=== PATIENT | female | born 1955 | race Caucasian/White ===

== ENCOUNTER 2022-04-08 07:38 | Observation (INO) ==
--- NOTE | 2022-03-05 12:50 | PAT Medication Instructions ---
Medication Instructions Date of Service March 05, 2022 Home Medications hydrochlorothiazide 25 mg tablet 25 mg PO QAM latanoprost 0.005 % eye drops 1 drp OPHTHALMIC (EYE) PM lisinopril 20 mg tablet 20 mg PO QAM DO NOT take the morning of surgery hydrochlorothiazide 25 mg tablet 25 mg PO QAM lisinopril 20 mg tablet 20 mg PO QAM Take evening before surgery latanoprost 0.005 % eye drops 1 drp OPHTHALMIC (EYE) PM Other Notes If you have any questions please call us at [phone] or [phone] or [phone] or [phone]
--- NOTE | 2022-03-10 09:15 | Anesthesiology Consultation ---
Date of Service March 10, 2022 Assessment & Plan (1) Encounter for pre-operative examination: COVID screening: Per assessment on 03/10: No known COVID-19 positive contacts or current COVID-19 related symptoms. Travel screen negative. Patient vaccinated. Surgeon arranging preop COVID testing. Awaiting results. Chart Review Chart Review: Acceptable Risk for Surgery and Patient seen in Pre Admission Testing Teaching & Discussion Pre-Anesthesia Teaching/Discussion Notes: Instructed NPO after midnight before surgery,except medications with 15 cc of water. Medication instructions provided according to the PAT guidelines. History Surgery Operation Date: 04/08/22 13:05 Proposed Procedures p Right Total Knee Arthroplasty - Lang Rubio DO Height/Weight Height: 5 ft 2 in Weight: 68.8 kg Allergies Allergy/AdvReac Type Severity Reaction Status Date / Time No Known Allergies Allergy Verified 03/05/22 11:41 Medications Home Medications Medication Instructions Recorded Confirmed Last Taken latanoprost 0.005 % eye drops 1 drp OPHTHALMIC (EYE) PM 03/05/22 03/05/22 Unknown lisinopril 20 mg tablet 20 mg PO QAM 03/05/22 03/05/22 Unknown Past Medical History Medical History Glaucoma (increased eye pressure) HTN (hypertension) Osteoarthritis Seizures Age 23, felt 2/2 encephalitis as a child. Seizure-free x 40+ years Exercise / Class Metabolic Activity II 4-5 Yardwork/Stairs/Walk up hill (one FS (no CP, no SOB)) Past Surgical History Surgical History History of colonoscopy [place] teeth removed Past Anesthesia History No Hx of Anesthesia Complications and No Family Hx of Anesthesia Complications History of PONV No Hx of PONV and No Hx of Motion Sickness Social History Smoking Status: Never smoker Do You Dip or Chew Tobacco: No Hx Alcohol Use: Yes Alcohol type: beer and wine alcohol intake frequency: a few times a month Hx Substance Use: No substance use type: does not use Review of Systems Patient denies chest pain, shortness of breath, dyspnea on exertion, fever, chills, cough, wheezing, palpitations. Physical Exam Vital Signs VITALS BP 145/89 P 93 TEMP 98.2 SP02 98%RA RESP 18 PHYSICAL Full cervical extension range of motion. Full TMJ range of motion. TMD 3 finger breaths Mallampati Score 3 Dentition: lower partial Lungs: clear throughout to auscultation Cardiac: regular rate and rhythm, no murmurs noted Spine: normal Carotid arteries: negative bruit Extremities: no edema Lab Results Anesthesia Preop Results Results Anesthesia Widget: WBC 5.96 K/uL (4.8-10.8) 03/10/22 Hgb 17.4 g/dL (12.0-16.0) H 03/10/22 Hct 51.3 % (37-47) H 03/10/22 Plt 253 K/uL (130-400) 03/10/22 Na 132 mmol/L (136-145) L 03/10/22 K 4.7 mmol/L (3.5-5.1) 03/10/22 Cl 100 mmol/L (98-107) 03/10/22 CO2 27 mmol/L (21-32) 03/10/22 BUN 19 mg/dl (6-23) 03/10/22 Creat 0.94 mg/dl (0.6-1.2) 03/10/22 Glucose Level 101 mg/dl (70-99(Fasting)) H 03/10/22 PT 10.9 Seconds (9.0-12.0) 03/10/22 PTT 31.2 Seconds (21.0-31.0) H 03/10/22 INR 1.0 (0.9-1.1) 03/10/22 HA1c 5.2 % (4.5-5.6) 03/10/22 Urine Color Yellow 03/10/22 Urine Appearance Clear (Clear) 03/10/22 Urine pH 5.0 (4.5-7.5) 03/10/22 Urine Specific Luther 1.006 (1.000-1.030) 03/10/22 Urine Protein Negative (Negative) 03/10/22 Urine Glucose (UA) Negative (Negative) 03/10/22 Urine Ketones Negative (Negative) 03/10/22 Urine Blood Negative (Negative) 03/10/22 Urine Nitrite Negative (Negative) 03/10/22 Urine Bilirubin Negative (Negative) 03/10/22 Urine Urobilinogen Negative (Negative) 03/10/22 Urine Leukocyte Esterase Negative (Negative) 03/10/22 Blood Type O Positive 03/10/22 Antibody Screen NEGATIVE 03/10/22 Testing Electrocardiogram Date: 03/10/22 Normal sinus rhythm at 80 bpm. Nonspecific T wave abnormality. Chest X-Ray Date: 03/10/22 FINDINGS: Lung volumes are normal. Lungs are clear. There is no pneumothorax or pleural effusion. Cardiac size is normal. Mediastinal contours are normal. There is no evidence for pulmonary edema. There is mild elevation of the right hemidiaphragm. IMPRESSION: No acute cardiopulmonary findings.
--- NOTE | 2022-03-10 13:26 | History & Physical Report ---
Date of Service March 10, 2022 date of surgery: 04/08/22 Procedure: Right Total Knee Arthroplasty Surgeon: Lang Rubio Assessment & Plan (1) Arthritis of right knee: Plan: Risks and benefits of procedure discussed in detail today, patient would like to proceed with a patient matched Artis Right total knee replacement at [facility] as scheduled. will obtain medical clearance prior to surgery as well as obtain PATs at [facility]. Will place on ASA 81mg po bid x 1 month post op, f/u 2 weeks post op for routine post-operative care and x-ray, sooner if having any problems. will make arrangements for HHPT at the time of discharge. At this point in time, has failed conservative measures and would like to proceed with surgical intervention. will schedule for Iovera treatment 2 weeks prior to her TKA The risks and benefits have been discussed including, but not limited to, risk of infection, nerve injury, stiffness, loss of motion, failure to improve, etc. Reasonable outcomes and options of treatment were discussed. An explanation of appropriate alternatives to the procedure that may be advantageous were discussed and their risks and benefits, as well as the risks and benefits of not proceeding with treatment. I offered to answer any additional inquiries concerning the treatment involved. All the patient's questions were answered. The patient is agreeable, understanding of the treatment plan and alternatives, and wishes to proceed with the treatment plan. History of Present Illness Chief Complaint: Right knee pain Primary Care Provider: NO PCP Suzanne is a 66 year old female who complains of right knee pain, presents for pre-op evaluation prior to a right total knee replacement by Dr Rubio at [facility]. she complains of pain, decreased range of motion, instability and stiffness in her right knee. Currently the patient states that the symptoms are moderate- severe and rated 8/10. The pain is described as aching, sharp and throbbing. Her symptoms are aggravated by ascending stairs, daily activities, first steps while awake walking. Prior NSAIDs include IBU and Aleve. She has been treated with previous cortisone and visco injections in the past without much relief. Allergies Allergy/AdvReac Type Severity Reaction Status Date / Time No Known Allergies Allergy Verified 03/05/22 11:41 Home Medications Medication Instructions Recorded Confirmed Type latanoprost 0.005 % eye drops 1 drp OPHTHALMIC (EYE) PM 03/05/22 03/05/22 History lisinopril 20 mg tablet 20 mg PO QAM 03/05/22 03/05/22 History Past Med/Surg History Medical History Glaucoma (increased eye pressure) HTN (hypertension) Osteoarthritis Seizures Age 23, felt 2/2 encephalitis as a child. Seizure-free x 40+ years Surgical History History of colonoscopy [place] teeth removed Social History Smoking Status: Never smoker Hx Alcohol Use: Yes Alcohol type: beer and wine Hx Substance Use: No Preferred Language: French Communication Ability: Effective Specialist Field Engineer Required: No Beliefs That Will Affect Care: None Current Living Situation: Spouse Feels Safe at Home: Yes Assistive Devices: Contacts, Denture - Lower and Glasses Review of Systems Review of Systems: All systems reviewed & are unremarkable except as noted in HPI & below Constitutional: no fever, no chills and no sweats Respiratory: no cough and no dyspnea Cardiovascular: no chest pain, no dyspnea and no orthopnea Gastrointestinal: no abdominal pain, no nausea and no vomiting Musculoskeletal: as per Subjective / HPI Physical Exam Physical Exam: HT: 5ft 2in WT: 68.8kg BP: 138/86 Pulse: 93 Constitutional: WD/WN, vitals as above no acute distress Respiratory: normal respiratory effort, lungs clear to auscultation no respiratory distress, no labored breathing and does not use accessory muscles Cardiovascular: RRR, no murmur, no edema Gastrointestinal (Abdomen): normal bowel sounds, soft, nontender, no hepatospl enomegaly Musculoskeletal: Knee: + knee abnormal to inspection (RIGHT KNEE), + effusion (+1 effusion), + limited ROM of knee (ROM 0/3/110), + knee ROM with crepitation, + joint line tenderness (medial joint line) and + Laurie's sign positive; no deformity, no skin erythema, no ecchymosis, no valgus laxity, no varus laxity, anterior drawer test negative, Krunal's sign negative and pivot shift test negative Results & Data Results & Data ([facility]) Diagnostic Findings Right Knee X-ray: Right knee series showing advanced degenerative changes to the right knee, narrowing of the medial compartment and patello-femoral joint with patellar spurring noted, findings showing joint space narrowing of the medial compartment and patello-femoral joint, osteophyte formation and subchondral sclerosis noted. overall varus alignment. no acute bony pathology noted.
[~2022-04-08 07:38] MED LIST: ACETAMINOPHEN 500 MG TAB PO SCH; BUPIVACAINE 0.5 % 5 MG/1 ML PF 10ML VIAL ONE; CeleBREX 200 MG CAP PO SCH; FAMOTIDINE 20 MG TAB PO SCH; GABAPENTIN 300 MG CAP PO SCH; LR 500ML BOLUS, THEN 15ML/HR IV SCH; METOCLOPRAMIDE HCL 10 MG TABLET PO SCH; ROPIVACAINE 0.5% 5 MG/ML 30 ML VIAL ONE; ROPIVACAINE 0.5% HCL/PF 150 MG, BUPIVACAINE 0.75% MPF 20 ML, EPINEPHrine 30MG/30ML (OR ... INSTIL SCH; TRANEXAMIC ACID 1,000 MG **IV Intra-op IV SCH; TRANEXAMIC ACID 1,000 MG **IV Pre-op IV SCH; ceFAZolin 2000MG 2,000 MG/15 ML SYR IV SCH; dexAMETHasone 4 MG TAB PO SCH; oxyCODONE HCL 10 MG TABCR (OxyCONTIN) PO SCH
[2022-04-08] MEDS ORDERED: BUPIVACAINE 0.25% 30 ML VIAL ONE (07:50)
[2022-04-08] MEDS ORDERED: DEXAMETHASONE SOD INJ 4 MG/ML VIAL ONE (07:50)
[2022-04-08] MEDS ORDERED: EPINEPHrine INJ 1 MG/ML AMP ONE (07:50)
[2022-04-08] MEDS ORDERED: PROPOFOL IV EMULSION 10 MG/ML 20 ML VIAL IV ONE (08:34)
[2022-04-08] MEDS ORDERED: MIDAZOLAM HCL 1 MG/ML 2ML VIAL ONE (08:34)
[2022-04-08] MEDS ORDERED: LIDOCAINE 2% 2 ML VIAL/AMP(20MG/ML) INFIL ONE (08:34)
[2022-04-08] MEDS ORDERED: ONDANSETRON INJ 2 MG/ML 2 ML VIAL ONE (08:34)
[2022-04-08] MEDS ORDERED: fentaNYL citrate 100 MCG/2 ML VIAL ONE (08:35)
--- NOTE | 2022-04-08 08:51 | History & Physical Bridge Note ---
Date of Service April 08, 2022 History & Physical Bridge Note I have examined the patient, reviewed the History & Physical and in the interval since the performance of the History & Physical I have noted the following changes of clinical significance: no changes noted
[2022-04-08] MEDS ORDERED: ORTHO JOINT ANESTHETIC ONE (09:35)
[2022-04-08] MEDS ORDERED: ATROPINE SULFATE 0.1 MG/ML 10ML SYR IV PRN (09:55)
[2022-04-08] MEDS ORDERED: ONDANSETRON INJ 2 MG/ML 2 ML VIAL IV PRN ×2 (09:55→14:31)
[2022-04-08] MEDS ORDERED: ePHEDrine sulfate 50 MG/ML AMP IV PRN (09:55)
[2022-04-08] MEDS ORDERED: fentaNYL citrate 100 MCG/2 ML VIAL IV PRN (09:55)
[2022-04-08] MEDS ORDERED: ePHEDrine sulfate 50 MG/ML AMP ONE (11:10)
--- NOTE | 2022-04-08 11:21 | Operative Report ---
Post Operative Report Pre & Post Diagnosis Operation Date: 04/08/22 09:35 Pre-Op Diagnosis: Right Knee Osteoarthritis Post-Op Diagnosis: Right Knee Osteoarthritis I identified the patient and participated in the time-out.: Yes Procedure Operation Date: 04/08/22 09:35 Actual Procedures p Right Total Knee Arthroplasty(Right) utilizing Artis [employer] persona right total knee arthroplasty with block femur 8 narrow tibia EE polyeleven patella 31 oval Lang Rubio DO Surgeon Lang Rubio DO Nutrition Representative GALINA Bearden Estimated Blood Loss 5 Findings Consistent with Post-Op Diagnosis Patient presents with severe end-stage tricompartmental degenerative joint disease right knee no response to conservative management patient has varus alignment subchondral sclerosis marginal osteophytes eburnated [id number] with moderate to large effusion Specimens Bone and cartilage Drains Medium bore Hemovac Anesthesia Type MAC Spinal Regional Complications none Disposition Accompanied Patient To Recovery: No Disposition: Recovery Room Indications Patient presents with severe end-stage DJD right knee no response to conservative management clinic physical therapy anti-inflammatories relative rest activity modification corticosteroid injection viscosupplementation the above intraoperative findings were noted Description of Procedure After proper prepping and draping of the Right lower extremity anterior midline incision was made over the region of the extensor extensor mechanism after m eticulous hemostasis was obtained and maintained in subcutaneous tissues a medial parapatellar incision was made The patella was subluxed lateralward the medial lateral gutter were cleaned from any hypertrophic synovitis and scar tissue of the distal femoral block was placed and the distal femoral osteotomy cut was made subsequently the chamfers anterior and posterior osteotomy cuts were made utilizing the 4-in-1 block the tibia was subsequently subluxed anteriorward medial and ateral meniscal remnants were excised in their entirety remnants of the anterior and posterior cruciate ligaments were excised in their entirety excellent exposure of the proximal tibia was obtained the tibial osteotomy guide was placed on the proximal tibial osteotomy cut was made once again the knee was irrigated with copious amounts of sterile saline solution the patella was subsequently everted lateralward thickened scar tissue around the patella was removed the patella was subsequently cut utilizing a freehand technique and was drilled prepared for final preparation and placement of patella socially flexion-extension gaps were checked and the equal and symmetric trials were placed to the appropriate femoral and tibial trials with poly-spacer being placed for equal flexion and extension gaps and full range of motion including extension to 0 and flexion to 140 the trial components after having been taken to recovery range of motion was subsequently removed meticulous hemostasis was obtained and maintained subsequently a knee block injection of joint cocktail including ropivacaine 0.5% 150 mg. Bupivacaine 0.5% epinephrine 1-200,030 mL's toradol 30 mg dexamethasone 4 mg ketamine 10 mg clonidine 100 micrograms normal saline solution 30 mg was infiltrated into the soft tissues of the posterior knee medial lateral gutters and periosteal synovium special attention was paid to protect neurovascular structures at all times subsequently trial components having been removed the knee was irrigated with sterile saline solution. debris was removed the proximal tibia was subsequently prepared and was made ready for the placement of the tibial component tibial component was also cemented and tamped into position the femoral component was subsequently placed and cemented in the position the patellar component was subsequently cemented in position because hemostasis once again obtained and maintained wound having been thoroughly irrigated with debridement and debridement lavage was performed as well as a medial parapatellar incision closed with #1 Vicryl in interrupted fashion subcutaneous was closed with #2 Vicryl skin was closed with skin clips. PA-C was necessary for prepping and drapping as well as wound closure of deep fascia Sub cutaneous tissue and skin and was necessary for the case. A sterile compressive dressing was placed patient was taken to recovery in stable condition of report dictated by Ramiro I attest to the content of the Intraoperative Record and any orders documented therein. Any exceptions are noted below.Due to the complex nature of the procedure, the entire surgery was performed with the operational assistance of GALINA Bearden. The research lab assistant, under direct supervision, was involved in the actual performance of all aspects of the surgical procedure including hemostasis, tissue retraction and incision, instrument management, patient posi tioning, and wound closure. I attest to the content of the Intraoperative Record and any orders documented therein. Any exceptions are noted below.
--- NOTE | 2022-04-08 12:58 | XRay Report ---
TWO VIEWS RIGHT KNEE CLINICAL HISTORY: Postoperative examination. FINDINGS: AP and crosstable lateral portable views of the right knee are obtained. A right knee arthr oplasty is in near anatomic alignment. There has been undersurface remodeling of the patella. No acut e fracture is seen. There are expected postoperative changes around the knee including a surgical estevan in, soft tissue edema, and subcutaneous gas. IMPRESSION: Expected postoperative changes status post right knee arthroplasty. No acute fracture is seen. ACT 112: Negative or not required by law. Electronically signed by: Adriano Tierney M.D. 04/08/2022 12:56 PM
--- NOTE | 2022-04-08 13:07 | Anesthesia Procedure Note ---
Date of Service April 08, 2022 Anesthesia Post Epidural Note Vital Signs Vital Signs: Temp Pulse Resp BP Pulse Ox 36.5 C 69 21 132/77 91 04/08/22 11:51 04/08/22 13:00 04/08/22 13:00 04/08/22 13:00 04/08/22 13:00 Notes Mental Status: alert / awake / arousable Patient Amnestic to Procedure: Yes Nausea / Vomiting: adequately controlled Pain: adequately controlled Airway Patency, RR, SpO2: stable & adequate BP & HR: stable & adequate Hydration State: stable & adequate Neuraxial Anesthesia: was administered and sensory block is resolving Anesthetic Complications: no major complications apparent and Pt Satisfied with anesthetic care Epidural: Removed without complications and With tip intact
[2022-04-08] MEDS ORDERED: MAGNESIUM HYDROXIDE SUSP 30 ML UDC PO PRN (14:31)
[2022-04-08] MEDS ORDERED: HYDROmorphone INJ 1 MG/ML SYRINGE IV PRN (14:31)
[2022-04-08] MEDS ORDERED: bisacodyL 10 MG SUPP PR PRN (14:31)
[2022-04-08] MEDS ORDERED: NALOXONE HCL 0.4 MG/1 ML VIAL/CARP IV PRN (14:31)
[2022-04-08] MEDS ORDERED: METOCLOPRAMIDE HCL INJ 5 MG/ML 2 ML VIAL IV PRN (14:31)
[2022-04-08] MEDS ORDERED: diphenhydrAMINE Capsule 25 MG CAP PO PRN (14:31)
[2022-04-08] MEDS: SODIUM CHLORIDE 0.9% 1000ML 1,000 ML IV SCH (15:08)
[2022-04-08] MEDS: KETOROLAC TROMETHAMINE 15 MG/ML VIAL IV SCH ×2 (16:34→20:43)
[2022-04-08] MEDS: ACETAMINOPHEN 500 MG TAB PO SCH ×2 (16:34→21:21)
[2022-04-08] MEDS: ceFAZolin 1000MG 1,000 MG/7.5 ML SYR IV SCH (17:31)
[2022-04-08] MEDS: LATANOPROST 0.005% OP SOLN 2.5 ML BTL OPB SCH (20:44)
[2022-04-08] MEDS: SENNA 8.6 MG TAB PO SCH (20:44)
[2022-04-08] MEDS: ASPIRIN 81 MG ECTAB PO SCH (20:45)
[2022-04-08] MEDS: DOCUSATE SODIUM 100 MG CAP PO SCH (20:45)
[2022-04-08] MEDS: oxyCODONE HCL IR 5 MG TAB (IMMEDIATE RELEASE) PO PRN (22:15)
[2022-04-09] MEDS: KETOROLAC TROMETHAMINE 15 MG/ML VIAL IV SCH ×2 (02:08→08:43)
[2022-04-09] MEDS: ceFAZolin 1000MG 1,000 MG/7.5 ML SYR IV SCH (02:08)
[2022-04-09] MEDS: oxyCODONE HCL IR 5 MG TAB (IMMEDIATE RELEASE) PO PRN ×4 (02:13→21:07)
[2022-04-09] MEDS: SODIUM CHLORIDE 0.9% 1000ML 1,000 ML IV SCH (02:16)
[2022-04-09] MEDS: ACETAMINOPHEN 500 MG TAB PO SCH ×3 (05:30→21:02)
[2022-04-09 06:18] LABS: Hematocrit (blood only) 41.7 % (37-47); Hemoglobin 13.7 g/dL (12.0-16.0); Mean Corpuscular Hemoglobin 30.9 pg (25-34); Mean Corpuscular Hgb Conc 32.9 g/dL (32-36); Mean Corpuscular Volume 94.1 fL (80-100); Mean Platelet Volume 10.4 fL (7.4-10.4); Platelet Count 291 K/uL (130-400); RDW Coefficient of Variation 13.6 % (11.5-14.5); Red Blood Count 4.43 M/uL (4.2-5.4); White Blood Count 12.85 K/uL (4.8-10.8)
[2022-04-09 07:01] LABS: BUN Creatinine Ratio 16.5 (10-20); Calcium 8.6 mg/dl (8.5-10.1); Creatinine Clr Calc Pharmacy 41.7 ml/min; Est GFR (Non-African American) 46.6 ml/min; Potassium 4.8 mmol/L (3.5-5.1)
--- NOTE | 2022-04-09 07:15 | Orthopedic Progress Note ---
Date of Service April 09, 2022 Assessment & Plan (1) History of total right knee replacement: Plan: POD #1 s/p Right TKA pt/ot dvt proph with [facility]ER[facility]/SCD/ASA plan for d/c home with home health PT, recheck after PT + foot drop, likely from intra op injection, cont to follow Admission and Anticipated Discharge Date Admission Date: April 08, 2022 Subjective POD #1 s/p Right TKA Review of Systems Constitutional: no fever, no chills and no sweats Respiratory: no cough and no dyspnea Cardiovascular: no chest pain and no dyspnea Gastrointestinal: no abdominal pain, no nausea and no vomiting Physical Exam Physical Exam: Vital Signs Temp 36.5 C 04/09/22 03:00 Pulse 50 L 04/09/22 03:00 Resp 16 04/09/22 03:00 BP 148/78 H 04/09/22 03:00 Pulse Ox 95 04/09/22 03:00 Intake & Output 04/08/22 04/09/22 04/09/22 18:59 06:59 18:59 Intake Total 1700 / 3000 1300 / 3000 Output Total 25 / 850 825 / 850 Balance 1675 / 2150 475 / 2150 Weight 69.3 kg Intake: IV 200 / 1200 1000 / 1200 Lactated Ringe r's 1,000 ml @ 15 0 / 0 mls/hr IV .Q24 H TING Rx#: [id number] Sodium Chlorid e 0.9% 1000ML 1, 1000 / 1000 000 ml @ 100 m ls/hr IV .Q10H TING Rx#:[id number] Tranexamic Aci d / 0.7% NaCl 1, 200 / 200 000 mg In 100 ml @ 600 mls/hr IV TODAY@0600 TING Rx#:[id number] IV Perioperative 1500 / 1500 Oral 300 / 300 Output: Urine 725 / 725 Estimated Blood Loss 5 / 5 Drain Output 20 / 120 100 / 120 Right Knee Hem ovac 20 / 120 100 / 120 Other: Weight Measureme nt Method Standing Scale Musculoskeletal: Right Leg: NVDI, calf SNT, negative nely sign. DP palpable, able to wiggle toes/ankle movement without difficulty. dressing clean dry and intact. Results & Data ([facility]) Vital Signs (Past 12 Hours) Vital Signs Temp Pulse Resp BP Pulse Ox 04/09/22 03:00 36.5 C 50 L 16 148/78 H 95 04/08/22 22:00 36.4 C L 49 L 16 167/84 H 94 04/08/22 19:15 36.7 C 63 16 131/81 95
[2022-04-09] MEDS: DOCUSATE SODIUM 100 MG CAP PO SCH ×2 (08:39→21:03)
[2022-04-09] MEDS: ASPIRIN 81 MG ECTAB PO SCH ×2 (08:39→21:03)
[2022-04-09] MEDS: lisinopril 20 MG TAB PO SCH (08:40)
[2022-04-09] MEDS: MULTIVITAMIN TAB PO SCH (08:40)
[2022-04-09] MEDS: LATANOPROST 0.005% OP SOLN 2.5 ML BTL OPB SCH (21:01)
[2022-04-09] MEDS: SENNA 8.6 MG TAB PO SCH (21:02)
[2022-04-09] MEDS ORDERED: SODIUM CHLORIDE 0.65% NA SOLN 45 ML (OCEAN) ONE (21:04)
[2022-04-10] MEDS: oxyCODONE HCL IR 5 MG TAB (IMMEDIATE RELEASE) PO PRN ×2 (05:05→09:11)
[2022-04-10] MEDS: ACETAMINOPHEN 500 MG TAB PO SCH (05:05)
--- NOTE | 2022-04-10 07:00 | Orthopedic Progress Note ---
Date of Service April 10, 2022 Assessment & Plan (1) History of total right knee replacement: Plan: POD #2 s/p Right TKA pt/ot dvt proph with M[facility]ERICK/SCD/ASA plan for d/c home with home health PT, foot drop has resolved. can d/c after PT today Admission and Anticipated Discharge Date Admission Date: April 08, 2022 Subjective POD #2 s/p Right TKA Review of Systems Constitutional: no fever and no chills Respiratory: no cough and no dyspnea Cardiovascular: no chest pain, no dyspnea and no orthopnea Gastrointestinal: no abdominal pain, no nausea and no vomiting Physical Exam Physical Exam: Vital Signs Temp Pulse Resp BP Pulse Ox 04/09/22 22:44 36.5 C 68 16 122/76 94 04/09/22 19:16 36.4 C L 76 16 137/86 97 04/09/22 14:19 36.4 C L 64 16 138/89 97 04/09/22 11:16 36.4 C L 57 L 18 119/74 97 04/09/22 08:38 59 L 143/87 H 04/09/22 07:20 36.4 C L 53 L 16 148/81 H 96 Intake and Output 04/09/22 04/09/22 04/10/22 14:59 22:59 06:59 Intake Total 635 / 960 325 / 960 Output Total 25 / 175 100 / 175 50 / 175 Balance 610 / 785 225 / 785 -50 / 785 Intake: Oral 635 / 960 325 / 960 Output: Drain Output 25 / 175 100 / 175 50 / 175 Right Knee Hem ovac 25 / 175 100 / 175 50 / 175 Musculoskeletal: Right Leg: NVDI, calf SNT, negative nely sign. DP palpable, able to wiggle toes/ankle movement without difficulty. dressing clean dry and intact. foot drop has resolved Results & Data ([facility]) Vital Signs (Past 12 Hours) Vital Signs Temp Pulse Resp BP Pulse Ox 04/09/22 22:44 36.5 C 68 16 122/76 94 04/09/22 19:16 36.4 C L 76 16 137/86 97
--- NOTE | 2022-04-10 07:31 | Discharge Summary ---
Date of Service date of discharge: April 10, 2022 date of admission: 04/08/22 Admission HPI Per Admitting Provider Suzanne is a 66 year old female who complains of right knee pain, presents for pre- op evaluation prior to a right total knee replacement by Dr Rubio at [facility]. she complains of pain, decreased range of motion, instability and stiffness in her right knee. Currently the patient states that the symptoms are moderate-severe and rated 8/10. The pain is described as aching, sharp and throbbing. Her symptoms are aggravated by ascending stairs, daily activities, first steps while awake walking. Prior NSAIDs include IBU and Aleve. She has been treated with previous cortisone and visco injections in the past without much relief. Principal Diagnosis right knee arthritis Discharge Exam Vital Signs Temp Pulse Resp BP Pulse Ox 04/09/22 22:44 36.5 C 68 16 122/76 94 04/09/22 19:16 36.4 C L 76 16 137/86 97 04/09/22 14:19 36.4 C L 64 16 138/89 97 04/09/22 11:16 36.4 C L 57 L 18 119/74 97 04/09/22 08:38 59 L 143/87 H 04/09/22 07:20 36.4 C L 53 L 16 148/81 H 96 Intake and Output 04/09/22 04/09/22 04/10/22 14:59 22:59 06:59 Intake Total 635 / 960 325 / 960 Output Total 25 / 175 100 / 175 50 / 175 Balance 610 / 785 225 / 785 -50 / 785 Intake: Oral 635 / 960 325 / 960 Output: Drain Output 25 / 175 100 / 175 50 / 175 Right Knee Hemovac 25 / 175 100 / 175 50 / 175 Constitutional WD/WN, vitals as above no acute distress Respiratory normal respiratory effort, lungs clear to auscultation no respiratory distress, no labored breathing and does not use accessory muscles Cardiovascular RRR, no murmur, no edema Gastrointestinal (Abdomen) normal bowel sounds, soft, nontender, no hepatosplenomegaly Musculoskeletal right knee: NVDI, calf SNT, negative nely sign. DP palpable, able to wiggle toes/ankle movement without difficulty. LUCA dressing clean dry and intact. expected post-operative bruising noted. foot drop resolved on POD #2 Discharge Data Allergies Allergy/AdvReac Type Severity Reaction Status Date / Time Sulfa (Sulfonamide Allergy Severe Verified 04/08/ 07:56 Antibiotics) Procedures Performed Operation Date: 04/08/22 09:35 Actual Procedures p Right Total Knee Arthroplasty(Right) - Lang Rubio DO Ordered Studies 04/08/22 05:00 US - OR guided needle placemen Routine Hospital Course (1) History of total right knee replacement: POD #2 s/p Right TKA pt/ot dvt proph with MAVERICK/SCD/ASA plan for d/c home with home health PT, foot drop has resolved. can d/c after PT today Total Time Total Time Spent Total Time Spent (In Minutes): 20 Discharge Plan Discharge Items Patient Disposition: Home - Home Health Services Reason For Visit: Right Knee Osteoarthritis Discharge Diagnosis: RIGHT TOTAL KNEE REPLACEMENT Activity: Per Instructions section Lifting: Wait until after follow-up appointment Weightbearing Comment: WBAT WITH WALKER Non-emergency contact: Surgeon Call non-emergency contact if: you have any medication questions, your temperature is above 101, your wound has increased redness, your wound has increased drainage and your wound pain has increased Follow-up/Referrals: PCP,NO [Physician] - Diet: Regular Addtl Attending Provider Instructions: ACTIVITY RECOMMENDATIONS: SELF CARE INSTRUCTIONS AFTER TOTAL KNEE REPLACEMENT A. You may need to continue a physical therapy program after discharge from the hospital. There are several options available to you. Your doctor will assist you in selecting the best one for you. 1. An out-patient facility 2 to 3 times a week for therapy or home therapy. 2. Continue working on all exercises taught to you in the hospital. Your goals should be to increase bending of your knee to 90 degrees and beyond and to fully straighten your knee. B. You may progress at your own pace from walking with a walker or crutches to a cane; then to no assistive devices. C. Make walking a part of your daily routine. Be up as much as comfortable with rest periods throughout the day. Rest with leg elevation is very important. Use the ice wrap frequently for the first 3-4 weeks. D. There are no restrictions on activities. You may ride in a car, shop, participate in automation qa lead and all social activities. E. Wear the long elastic stockings (MAVERICK hose) 20 hours a day for 2 weeks after surgery. They can be removed several times a day for laundering and for a bath. F. You may shower, no tub baths until cleared by your doctor. SPECIAL CARE INSTRUCTIONS: VERY IMPORTANT TO READ AND REVIEW A. There are a few signs you need to watch for after you are home. Call [facility] if you notice any of the followin. Increased severe knee pain. Some pain is expected especially when you exercise. 2. Increased swelling in your leg or knee; pain or swelling of the calf muscle in either lower leg. 3. Any fluid drainage from the incision. 4. Shortness of breath or chest pain. B. Please call [facility] at if you have any concerns or questions about your operation or recovery. The doctor or his nurse will return your call promptly. C. You must take antibiotics before dental work, bladder, bowel or other surgery. Your doctor will provide you with a permanent care to carry describing this precaution. IMPORTANT: * REMEMBER TO TAKE ASPIRIN, 81 MG, TWICE DAILY FOR 4 WEEKS UNLESS OTHERWISE DIRECTED. THIS IS YOUR BLOOD THINNER. * HIGH RISK PATIENTS MAY BE PRESCRIBED A STRONGER BLOOD THINNER. THIS WILL BE PROVIDED AT DISCHARGE. * CALL IF INCREASED PAIN, REDNESS, DRAINAGE OR FEVER GREATER THAT 101. * WEAR MAVERICK HOSE 20 HOURS PER DAY FOR 2 WEEKS. * LUCA Dressing- This is a large suction dressing covering your incision. This will help pull any excess drainage from the wound and allow your incision to heal properly. You may shower with this if you can keep the unit outside of the shower. If any bleeding or leakage is noted please call your doctor's office. This will remain on your incision for 7 days and then should be removed. This can be done yourself or by the home nursing staff if applicable. The entire unit is disposable once removed. Once removed, keep incision clean and dry. If redness or drainage is noted, please call your surgeon. ONCE LUCA IS REMOVED, FOLLOW THESE INSTRUCTIONS: DERMABOND Prineo- This is a mesh tape dressing that is covered with glue. It should remain in place until the incision is properly healed, usually 10-14 days. This dressing is designed to naturally slough off. You may trim the excess mesh tape as it peels off. Incision may be briefly wet in a shower. Dry immediately by blotting with a clean, dry towel. Do not bath or swim until instructed by your doctor. Do not scratch, rub, or pick at the dressing. Do not apply any topical ointments or lotions until dressing is completely removed and/or instructed by your doctor. There may be a small piece of suture material at one end of your incision. Do not pull or trim this. If it is bothersome or catching on clothing, you may cover it with a band-aid. IF INCISION IS LEAKING THROUGH DRESSING, CALL THE OFFICE . FOLLOW UP VISIT: If appointment is not already scheduled: Please call [facility] to make a follow-up appointment for 2 weeks after your surgery at . Pending Studies at Discharge: No Stand-Alone Forms: My [facility] [employer], Smoking Cessation Medications and DC Order Prescriptions: New acetaminophen [Tylenol Extra Strength] 500 mg Tablet 1,000 mg PO Q8 21 Days Qty: 126 RF: 0 aspirin 81 mg Tablet,Delayed Release (Dr/Ec) 81 mg PO BID 30 Days Qty: 60 RF: 0 oxycodone 5 mg Tablet 5 - 10 mg PO Q6H PRN (Reason: pain) Qty: 30 RF: 0 docusate sodium 100 mg Capsule 100 mg PO BID 10 Days Qty: 20 RF: 0 cefadroxil 500 mg capsule 500 mg PO BID 14 Days Qty: 28 RF: 0 Continued latanoprost 0.005 % Drops 1 drp OPHTHALMIC (EYE) PM RF: 0 lisinopril 20 mg Tablet 20 mg PO QAM RF: 0 Discharge Orders: Discharge Order (Routine); Ordered 04/10/22 Ordered By: Raymond Raymundo Admission Data Admit Date/Time: 04/08/22 11:56 Attending Provider: Lang Rubio Admit Provider: Lang Rubio Primary Care Provider: Dylan Mo Other Providers: Landon Ramirez tahmina
[2022-04-10] MEDS: DOCUSATE SODIUM 100 MG CAP PO SCH (08:29)
[2022-04-10] MEDS: ASPIRIN 81 MG ECTAB PO SCH (08:29)
[2022-04-10] MEDS: lisinopril 20 MG TAB PO SCH (08:30)
[2022-04-10] MEDS: MULTIVITAMIN TAB PO SCH (08:30)
== END 2022-04-10 12:38 | disposition home health service (06) ==
LOC: ASU 07:38 → 3E 07:38